=== PATIENT | female | born 1985 | race American Indian/Alaskan Native ===

== ENCOUNTER 2018-12-03 15:41 | Outpatient (CLI) | payer OTHER | END 2018-12-03 17:40 | disposition home or self-care (01) | LOC: NST 15:41 | DX: Z34.83 Encounter for supervision of other normal pregnancy, third trimester (principal) ==

== ENCOUNTER 2018-12-09 16:25 | Outpatient (CLI) | payer OTHER | END 2018-12-09 21:30 | disposition home or self-care (01) | LOC: NST 16:25 | DX: Z34.83 Encounter for supervision of other normal pregnancy, third trimester (principal) ==

== ENCOUNTER → 2018-12-11 | Outpatient (CLI) | payer OTHER | END | disposition home or self-care (01) | LOC: NST 15:04 | DX: Z34.83 Encounter for supervision of other normal pregnancy, third trimester (principal) ==

== ENCOUNTER 2018-12-15 12:03 | Outpatient (CLI) | payer OTHER | END 2018-12-15 13:17 | disposition home or self-care (01) | LOC: NST 12:03 | DX: Z34.83 Encounter for supervision of other normal pregnancy, third trimester (principal) ==

== ENCOUNTER 2018-12-18 13:57 | Outpatient (CLI) | payer OTHER | END 2018-12-18 14:53 | disposition home or self-care (01) | LOC: NST 13:57 | DX: Z34.83 Encounter for supervision of other normal pregnancy, third trimester (principal) ==

== ENCOUNTER 2018-12-23 08:13 | Outpatient (CLI) | payer OTHER | END 2018-12-23 09:11 | disposition home or self-care (01) | LOC: NST 08:13 | DX: Z34.83 Encounter for supervision of other normal pregnancy, third trimester (principal) ==

== ENCOUNTER 2018-12-26 18:31 | Inpatient (IN) | payer OTHER ==
[~2018-12-26] VITALS: Ht 152.4 cm; Wt 63.5 kg
[2018-12-26] MEDS ORDERED: PRENATAL ONE T1 EACH PO (19:15)
== END 2018-12-29 10:27 | disposition home or self-care (01) | DRG 786 ==
LOC: LDR 18:31 → SURG-SUITE 21:58
PROVIDERS: ADMIT Obstetrics & Gynecology
PROC: 4A1HXCZ Monitoring of Products of Conception, Cardiac Rate, External Approach (ICD-10-PCS; 2018-12-26)
PROC: 10D00Z1 Extraction of Products of Conception, Low, Open Approach (ICD-10-PCS; principal; 2018-12-26 19:15)
DX: O64.1XX0 Obstructed labor due to breech presentation, not applicable or unspecified (principal); O60.14X0 Preterm labor third trimester with preterm delivery third trimester, not applicable or unspecified; Z3A.36 36 weeks gestation of pregnancy; Z37.0 Single live birth